=== PATIENT | male | born 1975 | race Two or more races ===

== ENCOUNTER 2016-07-08 01:06 | Emergency (ER) | payer SELFPAY ==
--- NOTE | 2016-07-08 22:59 | ER ---
ADMIT: 07/08/2016 RM/LOC: ER [facility] MR#: [id number] [id number] [address] [place] [address] Emergency Room Report SEX: M AGE: 40 : 1975 DATE: 07/08/2016 TIME: 0106 Please refer to my T-sheet for complete H and P. HISTORY OF PRESENT ILLNESS: Briefly, the patient is a 40-year-old who was brought in by the police for med clearance going to [facility]. Apparently, he was drinking. He admits to drinking, but it has been more than an hour. He has no complaints. He is alert and talking, and he knows where he is at. PHYSICAL EXAMINATION: VITAL SIGNS: Stable. HEENT: Grossly normal. LUNGS: Clear. HEART: Regular. ABDOMEN: Soft. NEURO: He is alert, nonfocal, smells of alcohol, but very with it. EMERGENCY DEPARTMENT COURSE: Uneventful. ASSESSMENT: 1. Intoxicated. 2. Going to [facility]. PLAN: Okay to go with the officers. Diaz Robles MD/ josé luis JOB #: [id number] CC: Diaz Robles MD, Attending Physician
== END 2016-07-08 01:29 ==
LOC: ER 01:06
DX: F10.129 Alcohol abuse with intoxication, unspecified (principal)